=== PATIENT | male | born 1965 | race African-American/Black ===

== ENCOUNTER 2021-02-27 11:19 | Emergency (ER) | payer OTHER ==
[~2021-02-27 11:19] MED LIST: MOBIC7.5 M1 PO
== END 2021-02-27 13:18 | disposition home or self-care (01) ==
LOC: FER 11:19
DX: S61.512A Laceration without foreign body of left wrist, initial encounter (principal); I51.9 Heart disease, unspecified; I10 Essential (primary) hypertension; Z23 Encounter for immunization; W26.8XXA Contact with other sharp object(s), not elsewhere classified, initial encounter; Y92.009 Unspecified place in unspecified non-institutional (private) residence as the place of occurrence of the external cause
CPT/HCPCS: 90471; 90715

== ENCOUNTER → 2021-08-08 | Day surgery (SDC) | payer OTHER ==
[~2021-08-08] VITALS: Ht 182.9 cm; Wt 81.7 kg
[~2021-08-08] MED LIST changes: +DIOVAN160 MG PO; +LIPITOR40 MG PO; +METOPROLOL TAR100 MG PO; +TEKTURNA150 MG PO
[2021-08-08 10:09] LABS: BASOPHIL 0.2 % (0-2); EOSINOPHIL 2.1 % (0-5); HCT 47.4 % (42.0-52.0); HGB 16.3 g/dl (13.2-18.0); LYMPHOCYTE 31.8 % (15-48); MCH 32.7 pg (25.0-31.0); MCHC 34.4 g/dL (32.0-36.0); MCV 95.2 fL (78.0-100.0); MONOCYTE 5.3 % (0-12); MPV 8.7 fL (6.0-9.5); NEUTROPHIL 60.4 % (41-80); NRBC 0; PLT 276 K/uL (150-400); RBC 4.98 M/uL (4.70-6.00); RDW 13.4 % (11.5-14.0); WBC 10.9 K/uL (4.0-10.5)
[2021-08-08 10:23] LABS: INR 1.06 (0.9-1.2); PROTHROMBIN TIME 13.2 SECONDS (11.8-13.4); PTT 29.7 SECONDS (24.4-34.7)
[2021-08-08 10:35] LABS: ALBUMIN 3.6 g/dL (3.4-5.0); BILIRUBIN - TOTAL 0.5 mg/dL (0.2-1.0); BUN/CREAT RATIO (CALC) 11.7 RATIO; CREATININE 1.11 mg/dL (0.67-1.17); GLOBULIN (CALCULATION) 3.5 g/dL; TOTAL PROTEIN 7.1 g/dL (6.4-8.2)
== END | disposition home or self-care (01) ==
LOC: FAS 09:11
PROVIDERS: Oral & Maxillofacial Surgery
DX: K02.9 Dental caries, unspecified (principal); K04.7 Periapical abscess without sinus; I10 Essential (primary) hypertension; Z20.822 Contact with and (suspected) exposure to COVID-19
CPT/HCPCS: 36415; 71045; 80053; 85025; 85610; 85730; 93005; J1100; J1170; J1885; J2250; J2405; J2704; J3010; J7120